=== PATIENT | female | born 1980 | race Caucasian/White ===

== ENCOUNTER 2021-01-09 06:52 | Day surgery (SDC) | payer MEDICAID, SELFPAY ==
[2021-01-06 09:44] LABS: Hematocrit 44.1 % (37-47); Hemoglobin 14.7 g/dL (12.0-15.0); Mean Corp Hgb Conc 33.3 g/dL (32-36); Mean Corpuscular Hgb 30.9 pg (27.0-32.0); Mean Corpuscular Volume 92.6 fL (81-99); Mean Platelet Vol. 9.7 fl (6.2-12.0); Platelet Count 284 K/mm3 (150-450); RBC Distribution Width CV 12.1 % (11.6-14.6); RBC Distribution Width SD 41.5 fl (35.1-43.9); Red Blood Count 4.76 M/mm3 (4.2-5.4); White Blood Count 8.4 K/mm3 (4.4-11.0)
[2021-01-06 09:55] LABS: International Normalized Ratio 1.1; Prothrombin Time (Protime)PT. 13.3 SECONDS (11.7-14.9)
[2021-01-06 09:56] LABS: Partial Thromboplast Time 30.3 Seconds (24.1-36.2)
[2021-01-06 10:17] LABS: AST(SGOT) 27 U/L (15-37); Alanine Aminotransfer ALT/SGPT 68 U/L (13-56); Albumin, Serum 3.8 g/dL (3.2-5.0); Alkaline Phosphatase 72 U/L (45-117); Bilirubin, Direct 0.13 mg/dL (0.00-0.30); Globulin 3.1 g/dL (2.2-4.2); Protein, Total 6.9 g/dL (6.4-8.2); Thyroid Stim Hormone (TSH) 2.06 uIU/mL (0.358-3.74)
[2021-01-09] VITALS (9 sets, daily range): BP systolic 120–143; BP diastolic 80–109; PULSE 78–93; RESP 14–16; TEMP 36.2–36.6; O2SAT 95–100; BMI 35.2
[2021-01-09] MEDS: Lactated Ringers 1,000 ML 100 ML IV ×2 (07:43→10:36)
[2021-01-09] MEDS: Cefazolin 2 GM in 0.9% Normal Saline 100 ML IV (08:38)
[2021-01-09] MEDS: Bupivacaine Mpf 0.5% 30 ML VIAL (09:13)
[2021-01-09] MEDS: Epinephrine (1 mg/ml) 1 MG/ML VIAL (09:13)
--- NOTE | 2021-01-09 10:07 | OP.PCM_ITS ---
Report of Operation Date of Procedure: 01/09/21 Pre-Operative Diagnosis: MMT and ACL tear right knee Post-Operative Diagnosis: same Surgery/Procedure Performed:: Arthroscopic partial medial meniscectomy and ACL reconstruction with 8.5 mm tibialis anterior allograft right knee Surgeon: Tay Smith mems integration engineer: None mems integration engineer: Eduin Suresh Type of Anesthesia: General/Regional Anesthesiologist: Miguel Rivas Admit VTE Documentation VTE Present on Admission: No VTE Mechan Device Prophylaxis: SCD's VTE Pharm Prophylaxis ordered?: Yes
[2021-01-09] MEDS: HYDROcodone Bitartrate/Apap 5/325 Tablet PO (12:29)
== END 2021-01-09 13:43 | disposition home or self-care (01) ==
LOC: SDC 06:52 → AC 06:53
PROVIDERS: Anesthesiology; Referring Provider Orthopaedic Surgery; Visit Provider Orthopaedic Surgery
PROC: (CPT 29881; principal; 2021-01-09 08:25)
DX: S83.511A Sprain of anterior cruciate ligament of right knee, initial encounter (principal); S83.241A Other tear of medial meniscus, current injury, right knee, initial encounter; I10 Essential (primary) hypertension; E07.9 Disorder of thyroid, unspecified; M19.90 Unspecified osteoarthritis, unspecified site; F41.9 Anxiety disorder, unspecified; J45.909 Unspecified asthma, uncomplicated; K21.9 Gastro-esophageal reflux disease without esophagitis; F17.200 Nicotine dependence, unspecified, uncomplicated; Z79.51 Long term (current) use of inhaled steroids; Z79.891 Long term (current) use of opiate analgesic; Z79.899 Other long term (current) drug therapy; W10.9XXA Fall (on) (from) unspecified stairs and steps, initial encounter; Y93.01 Activity, walking, marching and hiking; Y92.009 Unspecified place in unspecified non-institutional (private) residence as the place of occurrence of the external cause; Y99.8 Other external cause status
CPT/HCPCS: 29881; 29888; 36415; 80076; 84443; 85027; 85610; 85730; 87426; C9803; J7120

== ENCOUNTER 2021-07-25 10:31 | Emergency (ER) | payer MEDICAID, SELFPAY ==
[2021-07-25 10:32] VITALS: BP 136/90; PULSE 79; RESP 18; TEMP 36.2; O2SAT 99; BMI 33.4
--- NOTE | 2021-07-25 11:15 | CT_ITS ---
STUDY: CTA CHEST REASON FOR EXAM: Female, 41 years old. chest and back pain, dissection study RADIATION DOSAGE (If Supplied By Facility): CTDIvol = ( 9.36 ) mGy, DLP = ( 379.70 ) mGycm TECHNIQUE: The examination was performed with the intravenous administration of IV 100mL Isovue-370. Post-processing of the angiographic images was performed, with multiplanar reformation and 3D reconstruction. Individualized dose optimization techniques were used for this CT. COMPARISON: Chest x-ray earlier today FINDINGS: Normal enhancement of the main pulmonary artery and right and left pulmonary arteries. Normal enhancement of the bilateral peripheral pulmonary arteries. There is no demonstrated pulmonary embolism. Normal thoracic aorta and visualized great vessels. There is no demonstrated aortic dissection. Normal heart and pericardium. Normal mediastinum. Normal hilar regions. Normal visualized trachea and bronchi. The lungs are well expanded. Normal pulmonary parenchyma. Normal pleura. Normal chest wall structures. Normal osseous structures. Normal visualized upper abdomen. CT/CTA Chest W/WO Contrast IMPRESSION: Normal CTA chest examination, without a demonstrated pulmonary embolism or arterial dissection. Electronically Signed: Thompson Pulliam MD at 13:00 EST ,
--- NOTE | 2021-07-25 11:15 | EKG12_ITS ---
Test Reason : CP Blood Pressure : / mmHG Vent. Rate : 064 BPM Atrial Rate : 064 BPM P-R Int : 144 ms QRS Dur : 088 ms QT Int : 400 ms P-R-T Axes : 035 052 021 degrees QTc Int : 412 ms Normal sinus rhythm Normal ECG Confirmed by NATALY MCDOWELL MD ([id number]), image editor GILLIAN LEO ([id number]) on 07/26/2021 9:41:41 AM Referred By: JOHNNY Confirmed By:NATALY MCDOWELL MD
[2021-07-25 11:28] VITALS: O2SAT 100
--- NOTE | 2021-07-25 11:28 | NURSING ---
NO OLD EKGS
[2021-07-25] MEDS: Aspirin 81 MG TAB.CHEW 324 MG PO (11:29)
[2021-07-25] MEDS: Ondansetron 4 MG/2 ML Vial IV (11:29)
[2021-07-25] MEDS: Morphine 4 MG/ML Syringe IV (11:29)
[2021-07-25] MEDS: 0.9% Normal Saline 1,000 ML 1000 ML IV (11:29)
[2021-07-25 11:36] LABS: Absolute Lymphocyte Count 2.59 X10^3/uL (0.83-4.51); Absolute Neutrophil Count 4.7 X10^3/uL (2.0-7.7); Basophil# 0.06 X10^3/uL; Basophil% 0.7 % (0-1); Eosinophil# 0.19 X10^3/uL; Eosinophils% 2.3 % (0-5); Hematocrit 42.4 % (37-47); Hemoglobin 14.1 g/dL (12.0-15.0); Lymphocyte # 2.59 X10^3/ul (0.83-4.51); Mean Corp Hgb Conc 33.3 g/dL (32-36); Mean Corpuscular Hgb 30.5 pg (27.0-32.0); Mean Corpuscular Volume 91.6 fL (81-99); Mean Platelet Vol. 9.4 fl (6.2-12.0); Monocyte# 0.52 X10^3/uL; Monocyte% 6.4 % (0-10); NRBC Flagged by Analyzer 0 % (0-5); Neutrophil # 4.71 X10^3/uL (2.7-7.7); Neutrophil % 58.4 % (47-70); Platelet Count 286 K/mm3 (150-450); RBC Distribution Width CV 12.6 % (11.6-14.6); RBC Distribution Width SD 41.8 fl (35.1-43.9); Red Blood Count 4.63 M/mm3 (4.2-5.4); White Blood Count 8.1 K/mm3 (4.4-11.0)
--- NOTE | 2021-07-25 11:47 | RAD_ITS ---
STUDY: X-RAY CHEST REASON FOR EXAM: Female, 41 years old. chest pain TECHNIQUE: Single AP portable view of the chest. COMPARISON: None. FINDINGS: The lungs are clear and expanded. There is no demonstrated pleural abnormality. Normal size heart. Normal mediastinum and fahad. Normal visualized pulmonary arteries. Normal visualized aortic arch and descending thoracic aorta. Normal visualized thoracic spine. Normal visualized ribs, clavicles, and shoulders. There is no demonstrated abnormality of the visualized soft tissue structures of the upper abdomen. RAD/Chest 1 View (Portable) IMPRESSION: Normal x-ray examination of the chest. Electronically Signed: Thompson Pulliam MD at 11:58 EST ,
[2021-07-25 11:50] LABS: AST(SGOT) 22 U/L (15-37); Alanine Aminotransfer ALT/SGPT 52 U/L (13-56); Albumin, Serum 4.1 g/dL (3.2-5.0); Alkaline Phosphatase 83 U/L (45-117); Bilirubin, Direct 0.15 mg/dL (0.00-0.30); Globulin 3.9 g/dL (2.2-4.2)
[2021-07-25 11:55] LABS: Anion Gap 6 (5-15); BUN 16 mg/dL (7-18); BUN/Creat Ratio 15.8 RATIO (10-20); Calcium,Total 9.2 mg/dL (8.5-10.1); Chloride 108 mmol/L (98-107); Creatinine, Serum 1.01 mg/dL (0.55-1.02); EST Glomerular Filtration Rate 64 mL/min (>60); Est Glom Filt Rate - Afr Amer 78 mL/min (>60); Estimated Creatinine Clearance 66.63 ml/min; Glucose 104 mg/dL (74-106); Lipase 76 U/L (73-393); Potassium 3.7 mmol/L (3.5-5.1); Sodium Level 141 mmol/L (136-145); Thyroid Stim Hormone (TSH) 1.42 uIU/mL (0.358-3.74); Troponin-I HS < 3 pg/mL (3.0-54.0)
[2021-07-25 12:18] VITALS: BP 98/81; PULSE 90; RESP 19; O2SAT 99
[2021-07-25] MEDS: proCHLORPERazine 10 MG/2 ML Vial IV (13:14)
[2021-07-25] MEDS: DiphenhydrAMINE 50 MG/ML Syringe 25 MG IV (13:14)
[2021-07-25] MEDS: Ketorolac 15 MG/ML Vial IV (13:14)
[2021-07-25 13:16] VITALS: BP 127/81; PULSE 77; RESP 15; O2SAT 99
[2021-07-25] MEDS: Famotidine 200 MG/20 ML MDV 20 MG in 0.9% Normal Saline (Pres. free 8 ML 300 MG IV (13:29)
--- NOTE | 2021-07-25 14:15 | CASEMGMT ---
MIGNON CARRANZA note: MIGNON CARRANZA to room to provide [facility] Healthcare Provider Directory to patient as patient has no PCP listed on record. MIGNON CARRANZA introduced self and role at [facility]. Patient is alert and oriented, in no apparent distress. Patient states she does believe she has a PCP but that she has not been seen in the office in over a year. Provider Directory provided in case of need for resource for follow-up. Patient denies further needs and expressed appreciation for resource. MIGNON West CM
--- NOTE | 2021-07-25 14:36 | ED.VIS.CHEST ---
HPI History of Present Illness Chief Complaint: Chest Pain Informant: patient Narrative Narrative: Patient is a 41-year-old female with remote history of hypertension and hypothyroid however that is resolved since having weight loss presenting with chest pain. Patient states last night she woke up in the middle of the night with the pain in the middle of her back and decreased sensation in her arms and hands. She felt like she could not move her hands. She thought it was maybe the position she was sleeping and so she went back to sleep. That symptom has not since resumed. This morning she developed a headache and then developed pain/cramping in the center of her anterior chest. It radiates into her bilateral collarbones. She has some associated nausea and no vomiting. She does not feel mildly short of breath. She denies any fever or cough. She denies any recent illnesses. She denies any leg swelling or pain. She is never anything like this before. [facility] Medical History Alcohol use Anxiety Arthritis Asthma Back pain Easy bruising Gastric reflux History of jejunostomy tube placement History of pain when walking History of renal disease Hypertension Leg cramps Smoker Syncope Thyroid disease Wears contact lenses Home Medications albuterol sulfate 1 inh INHALATION Q6H PRN 12/21/20 [History Last Taken Unknown] Allergy/AdvReac Type Severity Reaction Status Date / Time barley Allergy Shortness Verified 07/25/21 10:32 of breath clams Allergy Shortness Verified 07/25/21 10:32 of breath rebecca Allergy Shortness Verified 07/25/21 10:32 of breath latex Allergy Hives Verified 07/25/21 10:32 methylprednisolone Allergy Hives Verified 07/25/21 10:32 metoclopramide [From Reglan] AdvReac HEART Verified 07/25/21 10:32 RACING sumatriptan [From Imitrex] AdvReac HEART Verified 07/25/21 10:32 RACING Surgical History History of arthroscopy of left shoulder History of hysteroscopy History of tonsillectomy and adenoidectomy Hx of appendectomy Hx of bladder repair surgery Hx of hysterectomy Hx of laparoscopy Hx of right knee surgery Social History Smoking Status: Former smoker ROS ROS ED Constitutional Constitutional ED: Denies chills or fever(s) ENT ENT ED: Denies rhinorrhea or sore throat Cardiovascular Cardiovascular: Reports chest pain Respiratory/Chest Respiratory/Chest: Reports dyspnea; Denies cough Gastrointestinal Gastrointestinal: Reports nausea; Denies abdominal pain or vomiting Musculoskeletal Musculoskeletal: Reports back pain; Denies arthralgias or myalgias Integumentary Denies rash Neurologic Neurologic: Reports paresthesias; Denies headache(s) or weakness Psychiatric Psychiatric: Denies anxiety or depression EXAM Physical Exam Const Vital Signs: 07/25/21 10:32 07/25/21 10:41 07/25/21 11:28 Temperature 97.1 F L Temperature Source Temporal Pulse Rate 79 Respiratory Rate 18 Respiratory Effort Normal Non-Labored Respiratory Pattern Normal Blood Pressure 136/90 H Blood Pressure Mean 105 Pulse Ox 99 100 Oxygen Delivery Method Room Air Room Air 07/25/21 12:18 07/25/21 13:16 Temperature Temperature Source Pulse Rate 90 77 Respiratory Rate 19 H 15 Respiratory Effort Respiratory Pattern Blood Pressure 98/81 H 127/81 H Blood Pressure Mean 86 96 Pulse Ox 99 99 Oxygen Delivery Method Room Air Room Air Positive well nourished and well developed General Appearance ED: well developed HEENT Reports moist mucous membranes normocephalic and atraumatic Eyes PERRL and EOMs intact bilaterally Neck supple and no JVD Chest Wall inspection of chest normal Resp normal respiratory effort and clear to auscultation bilaterally Effort and Inspection: Negative for respiratory distress Cardio regular rate and regular rhythm Rate: other Other Details: 2+ DP and radial pulses GI normal to inspection, nondistended, normoactive bowel sounds, soft to palpation and non-tender Back/Spine no CVA tenderness Neuro oriented x3 Sensorium / Orientation: awake and alert Psych mental status grossly normal Skin no rashes or lesions noted MDM MDM MDM Narrative Medical decision making narrative: Patient is evaluated for constellation of chest pain, back pain, arm numbness and shortness of breath. She appears nontoxic in no acute distress. Her vital signs are normal. She is equal peripheral pulses. Given the combination of symptoms I did obtain a CTA of the chest to rule out dissection, PE or pneumothorax. This is normal. Patient states that she troponin is normal. Her EKG is normal. Her TSH is normal. She has a normal CBC, BMP and liver panel. The exact cause of her symptoms is not clear however I think she stable for outpatient follow-up. Patient initially is given a dose of morphine, Zofran and IV fluids in the ER. On repeat evaluation she is still having headache so I did order her Toradol, Pepcid, Benadryl and Compazine. Patient is feeling much better. She will be discharged home. She will follow up with her primary care doctor. Lab Data Attestation: I reviewed the patient's lab results. Labs: Laboratory Results - last 24 hr 07/25/21 07/25/21 07/25/21 11:00 11:00 11:00 WBC 8.1 RBC 4.63 Hgb 14.1 Hct 42.4 MCV 91.6 MCH 30.5 MCHC 33.3 RDW Std Deviation 41.8 RDW Coeff of Jack 12.6 Plt Count 286 MPV 9.4 Immature Gran % (Auto) 0.200 Neut % (Auto) 58.4 Lymph % (Auto) 32.0 Edmonson % (Auto) 6.4 Eos % (Auto) 2.3 Baso % (Auto) 0.7 Absolute Neuts (auto) 4.7 Absolute Lymphs (auto) 2.59 Nucleated RBC % 0 Sodium 141 Potassium 3.7 Chloride 108 H Carbon Dioxide 27.0 Anion Gap 6 BUN 16 Creatinine 1.01 Estim Creat Clear Calc 66.63 Est GFR (MDRD) Af Amer 78 Est GFR (MDRD) Non-Af 64 BUN/Creatinine Ratio 15.8 Glucose 104 Calcium 9.2 Total Bilirubin 0.50 Direct Bilirubin 0.15 AST 22 ALT 52 Alkaline Phosphatase 83 Troponin I High Sens < 3 L Total Protein 8.0 Albumin 4.1 Globulin 3.9 Lipase 76 TSH 1.42 Radiography Chest X-Ray - ED: 1 View, Read by ED Physician, Read by Radiologist and Normal Diagnostic Testing: Clinical Impression(s) from Imaging Studies Chest CTA 07/25/21 11:15 IMPRESSION: Normal CTA chest examination, without a demonstrated pulmonary embolism or arterial dissection. Electronically Signed: Thompson Pulliam MD at 13:00 EST , Chest X-Ray 07/25/21 11:47 IMPRESSION: Normal x-ray examination of the chest. Electronically Signed: Thompson Pulliam MD at 11:58 EST , Rhythm Strip Rhythm Strip: Sinus Rhythm Rate: 64 Ectopy: None EKG Initial EKG: Attestation: I personally reviewed and interpreted this EKG as follows: Interpretation: Sinus Rhythm Comments: Normal sinus rhythm and rate of 64 Normal axis Normal intervals Normal ST segment Discharge Plan Triage Chief Complaint: Chest Pain Other Complaint: Dizziness Shortness of Breath ED Provider: Brooklyn Luna Dx/Rx/DC Orders Clinical Impression: Chest pain, Headache, Breathlessness Instructions: ED Chest Pain, Uncertain Cause Prescriptions: No Action albuterol sulfate 90 mcg/actuation Aerosol Powdr Breath Activated 1 inh INHALATION Q6H PRN (Reason: SOB) RF: 0 Primary Care Provider: Care Physician,No Primary Referrals: Miri Nelson [NON-STAFF] - Care Physician,No Primary [Primary Care Provider] - Disposition Disposition: Home, Self Care
[2021-07-25 14:50] VITALS: BP 102/84; PULSE 71; RESP 18; O2SAT 98
== END 2021-07-25 14:51 | disposition home or self-care (01) ==
PROVIDERS: Emergency Provider Emergency Medicine; Visit Provider Emergency Medicine
DX: R07.9 Chest pain, unspecified (principal); M54.9 Dorsalgia, unspecified; R42 Dizziness and giddiness; M79.641 Pain in right hand; Z87.891 Personal history of nicotine dependence; M79.602 Pain in left arm; R11.0 Nausea; R51.9 Headache, unspecified; M79.642 Pain in left hand; I10 Essential (primary) hypertension; R06.02 Shortness of breath; M79.601 Pain in right arm
CPT/HCPCS: 71045; 71275; 80048; 80076; 83690; 84443; 84484; 85025; 93005; 96361; 96374; 96375; 99284; J7030; A4216; J2405; J3490